=== PATIENT | male | born 1960 | race Caucasian/White ===

== ENCOUNTER 2020-01-16 13:02 | Inpatient (IN) | payer OTHER ==
[~2020-01-16] VITALS: Ht 170.2 cm; Wt 94.0 kg
--- NOTE | 2020-01-16 13:25 | NUR ---
Transfer from [place]. +occulsive thrombus left common femoral vein. C/O LLE erythema and edema. NAD. C/O mild cough x 2 weeks. Denies CP and SOB. EKG done. Placed on NIBP, pulse ox, andcardiac monitor. Will continue to monitor.
[2020-01-16] MEDS ORDERED: ATEN25TA PO (13:39)
[2020-01-16] MEDS ORDERED: ALLO100T30 PO (13:39)
[2020-01-16] MEDS ORDERED: HYDR25TA6 PO (13:39)
--- NOTE | 2020-01-16 14:06 | NUR ---
Provider at bedside. Report to Cathryn Clifford RN.
--- NOTE | 2020-01-16 14:18 | NUR ---
REPORT FROM ÁNGEL HERNADEZ. PT SITTING UPRIGHT IN [place] NOTED. REPORTS "SANDPAPER" SENSATION IN [place] YESTERDAY. SEEN IN ED IN [place] TODAY AND DX WITH LLE DVT. NO HX OF SAME. LOVENOX IN [place] PRIOR TO TRANSPORT. DENIES CP/SOB. VSS.
--- NOTE | 2020-01-16 14:50 | NUR ---
ATTEMPTED DOPPLER TO DETECT PERIPHERAL PULSES. WEAK LEFT POSTERIOR TIBIAL FOUND, NO DORSAL PEDAL DETECTED. >3S CAP REFILL OF LLE NOTED. ERP AWARE.
--- NOTE | 2020-01-16 15:57 | NUR ---
PT'S SISTER UPDATED TO POC WITH THE CONSENT OF PT. PT REPOSITIONED FOR COMFORT. VSS. CONTINUES TO DENY CP/SOB. AWAITING NERI
--- NOTE | 2020-01-16 16:15 | NUR ---
CV US CONTACTED TO REQUEST NERI. TECH STATES THAT ORDER WAS PLACED "ROUTINE" RATHER THAN STAT. TECH AWARE THAT NERI NEEDS TO BE DONE SOON POSSIBLE AND AGREES TO COMPLETE
--- NOTE | 2020-01-16 16:48 | NUR ---
NERI IN PROGRESS
[2020-01-16] MEDS ORDERED: ONDANSETRON 2MG/ML, 2ML IVPush ONE (18:00)
[2020-01-16] MEDS ORDERED: HEPARIN 25,000 UNITS/250ML PMX 250 ML IV PRN ×2 (18:00→23:00)
[2020-01-16] MEDS ORDERED: MORPHINE SULFATE 4 MG/ML, 1ML IVPush PRN (18:00)
[2020-01-16] MEDS ORDERED: HEPARIN 5,000 UNITS/ML, 1ML ONE (18:08)
[2020-01-16] MEDS ORDERED: HEPARIN 25,000 UNITS/250ML PMX 0 ML ONE (18:08)
--- NOTE | 2020-01-16 18:13 | NUR ---
DELAY IN MEDICATING WITH HEPARIN. PT MEDICATED W LOVENOX [employer] MAINTAIN[employer] TO [facility]. ERP AWARE AND TOLD RN TO HOLD UNTIL PATIENT IS SEEN BY HOSPITALIST
--- NOTE | 2020-01-16 18:17 | NUR ---
task rn: LAB BEDSIDE. PT RESTING ON GURNEY. RAMIREZ. AWAITING ROOM ASSIGNMENT. NO OTHER NEEDS REQUESTED AT THIS TIME.
[2020-01-16 18:25] LABS: BASOPHILS # (AUTO) 0.02 x10^3/uL (0-0.1); BASOPHILS % (AUTO) 0 % (0-1); EOSINOPHILS # (AUTO) 0.15 x10^3/uL (0-0.4); EOSINOPHILS % (AUTO) 2 % (1-7); LYMPHOCYTES # (AUTO) 1.35 x10^3/uL (1-3.4); LYMPHOCYTES % (AUTO) 14 % (22-44); MD NO; MEAN CORPUSCULAR HEMOGLOBIN 33.7 pg (27.5-34.5); MEAN CORPUSCULAR HGB CONC 33.3 g/dL (33.2-36.2); MEAN CORPUSCULAR VOLUME 101.2 fL (81-97); MEAN PLATELET VOLUME 7.7 fL (7.4-10.4); MONOCYTES # (AUTO) 0.92 x10^3/uL (0.2-0.8); MONOCYTES % (AUTO) 9 % (2-9); NEUTROPHILS # (AUTO) 7.41 x10^3/uL (1.8-6.8); NEUTROPHILS % (AUTO) 75 % (42-75); PLATELET COUNT 169 x10^3/uL (130-400); RED BLOOD COUNT 5.07 x10^6/uL (4.38-5.82); RED CELL DISTRIBUTION WIDTH 13.9 % (9.4-14.8)
[2020-01-16 18:36] LABS: INTERNATIONAL NORMALIZED RATIO 1.09 (0.93-1.1); PROTHROMBIN TIME 11.2 Seconds (9.6-11.5)
[2020-01-16 18:37] LABS: ALANINE AMINOTRANSFERASE 34 U/L (12-78); ALBUMIN 3.4 g/dL (3.4-5.0); ANION GAP 11 mmol/L (5-15); CALCIUM 9.7 mg/dL (8.5-10.1); CHLORIDE 102 mmol/L (98-107)
[2020-01-16 18:39] LABS: ALKALINE PHOSPHATASE 81 U/L (45-117); BILIRUBIN,TOTAL 1.6 mg/dL (0.2-1.0); CREATININE 2.45 mg/dL (0.7-1.3); TOTAL PROTEIN 8.3 g/dL (6.4-8.2)
[2020-01-16] MEDS ORDERED: HEPARIN 5,000 UNITS/ML, 1ML IV PRN (19:00)
[2020-01-16] MEDS ORDERED: HEPARIN 5,000 UNITS/ML, 1ML IV ONE (19:00)
[2020-01-16] MEDS ORDERED: SODIUM CHLORIDE FLUSH 10ML SYR IVF ONE (19:00)
--- NOTE | 2020-01-16 19:12 | NUR ---
PER PHARMACY, OKAY TO START HEPARIN APPROX 12 HOURS POST LOVENOX DOSE IN ED IN [place]. ESTIMATED LOVENOX ADMIN TIME 10AM.
--- NOTE | 2020-01-16 19:46 | NUR ---
DELAY IN CALLING REPORT. POSSIBLE ADMIT TO IR THEN CCU. AWAITING IR EVAL.
--- NOTE | 2020-01-16 20:23 | NUR ---
FAILED ATTEMPT FOR ADDITIONAL PIV ACCESS. IR RN STATES THAT ONE PIV IS OKAY. IR RN STATES THAT PT WILL GO TO CCU DIRECTLY POST TPA. TP RN AWARE. CCU ADMIT ORDER PLACED BY JACQUELINE.
[2020-01-16] MEDS ORDERED: LIDOCAINE 1%, 10ML ONE (20:26)
[2020-01-16] MEDS ORDERED: PHARMACY MAY ADJ FOR RENAL FX MC PRN (20:30)
[2020-01-16] MEDS ORDERED: hydrALAzine 20 MG/ML, 1ML IVPush PRN (20:30)
[2020-01-16] MEDS ORDERED: GABAPENTIN 300 MG CAPSULE PO PRN (20:30)
[2020-01-16] MEDS ORDERED: ONDANSETRON 2MG/ML, 2ML IVPush PRN (20:30)
[2020-01-16] MEDS ORDERED: ALBUTEROL HFA 90 MCG/SPRAY INH PRN (20:30)
[2020-01-16] MEDS ORDERED: ACETAMINOPHEN 325 MG TABLET PO PRN (20:30)
[2020-01-16] MEDS ORDERED: TRAZODONE 50MG TABLET PO PRN (20:30)
[2020-01-16] MEDS ORDERED: morphine SULFATE 10 MG/ML, 1ML IVPush PRN (20:30)
[2020-01-16 20:52] LABS: CREATINE KINASE, TOTAL 75 U/L (39-308)
[2020-01-16] MEDS ORDERED: FENTANYL PF 100 MCG/2ML ONE (21:19)
[2020-01-16] MEDS ORDERED: MIDAZOLAM 1 MG/ML, 5ML ONE ×2 (21:20)
[2020-01-16] MEDS ORDERED: NALOXONE 1 MG/ML, 2ML ONE (21:20)
[2020-01-16] MEDS ORDERED: FLUMAZENIL 0.1 MG/1 ML, 5ML ONE (21:20)
[2020-01-16] MEDS ORDERED: ALTEPLASE 10 MG in SODIUM CHLORIDE 0.9% 90 ML IV SCH (21:30)
[2020-01-16] MEDS ORDERED: HEPARIN 1,000 UNITS/ML, 10ML ONE (22:12)
[2020-01-16] MEDS ORDERED: VISIPAQUE 320MG/ML, 50ML BOTTLE ONE (22:46)
[2020-01-16] MEDS: Heparin 1000 units/500 ml 500 ML IV SCH (23:00)
[2020-01-16] MEDS ORDERED: OMNIPAQUE 350 MG/ML, 100ML BOTTLE ONE (23:06)
[2020-01-16 23:30] VITALS: BP 142/92
[2020-01-16] MEDS: ALTEPLASE 10 MG in SODIUM CHLORIDE 0.9% 90 ML IV SCH (23:39)
[2020-01-16] MEDS: LACTATED RINGERS 1,000 ML IV SCH (23:49)
[2020-01-17 04:00] VITALS: BP 107/69
[2020-01-17 06:10] LABS: ANION GAP 8 mmol/L (5-15); CHLORIDE 101 mmol/L (98-107)
[2020-01-17 06:12] LABS: CREATININE 2.02 mg/dL (0.7-1.3)
[2020-01-17 06:44] LABS: BASOPHILS # (AUTO) 0.04 x10^3/uL (0-0.1); BASOPHILS % (AUTO) 1 % (0-1); EOSINOPHILS # (AUTO) 0.21 x10^3/uL (0-0.4); EOSINOPHILS % (AUTO) 2 % (1-7); LYMPHOCYTES # (AUTO) 1.53 x10^3/uL (1-3.4); LYMPHOCYTES % (AUTO) 17 % (22-44); MD NO; MEAN CORPUSCULAR HEMOGLOBIN 33.5 pg (27.5-34.5); MEAN CORPUSCULAR VOLUME 101.5 fL (81-97); MEAN PLATELET VOLUME 8.1 fL (7.4-10.4); MONOCYTES # (AUTO) 1.09 x10^3/uL (0.2-0.8); MONOCYTES % (AUTO) 12 % (2-9); NEUTROPHILS # (AUTO) 6.32 x10^3/uL (1.8-6.8); NEUTROPHILS % (AUTO) 69 % (42-75); PLATELET COUNT 159 x10^3/uL (130-400); RED BLOOD COUNT 4.67 x10^6/uL (4.38-5.82); RED CELL DISTRIBUTION WIDTH 13.7 % (9.4-14.8)
[2020-01-17] MEDS ORDERED: ETOMIDATE 20 MG/10 ML ONE (07:48)
[2020-01-17] MEDS ORDERED: SUCCINYLCHOLINE 20 MG/ML, 10ML ONE (07:48)
[2020-01-17] MEDS ORDERED: PROPOFOL 10 MG/ML, 100ML IV ONE (07:48)
[2020-01-17] MEDS: ALTEPLASE 10 MG in SODIUM CHLORIDE 0.9% 90 ML IV SCH ×2 (07:56→13:55)
[2020-01-17] MEDS ORDERED: SENNA/DOCUSATE TABLET PO SCH (09:00)
[2020-01-17] MEDS ORDERED: POTASSIUM CHLORIDE 40 MEQ in SODIUM CHLORIDE 0.9% 500 ML IV ONE (09:00)
[2020-01-17] MEDS: LACTATED RINGERS 1,000 ML IV SCH (10:14)
[2020-01-17] MEDS: Heparin 1000 units/500 ml 500 ML IV SCH (13:53)
[2020-01-17] MEDS ORDERED: DEXAMETHASONE 4 MG/ML, 1ML ONE (22:52)
[2020-01-17] MEDS ORDERED: DEXAMETHASONE 4 MG/ML, 1ML IVPush ONE (23:00)
[2020-01-17] MEDS ORDERED: HEPARIN 25,000 UNITS/250ML PMX 250 ML IV PRN (23:00)
[2020-01-17] MEDS ORDERED: PHYTONADIONE 10 MG/ML, 1ML ONE (23:05)
[2020-01-17] MEDS ORDERED: PHYTONADIONE 10 MG/ML, 1ML IV ONE (23:30)
[2020-01-17] MEDS ORDERED: PROTAMINE SULFATE 10 MG/ML, 5ML IVPush ONE (23:30)
[2020-01-17] MEDS ORDERED: OMNIPAQUE 350 MG/ML, 100ML BOTTLE ONE (23:52)
[2020-01-17] MEDS ORDERED: FENTANYL PF 250 MCG/5ML ONE (23:55)
[2020-01-18] MEDS ORDERED: MORPHINE SULFATE 4 MG/ML, 1ML IV ONE (00:30)
[2020-01-18] MEDS ORDERED: LORazepam 2 MG/ML, 1ML IV ONE (00:30)
[2020-01-18 00:44] LABS: MICROSCOPIC INDICATED
[2020-01-18] MEDS: LORazepam 2 MG/ML, 1ML IVPush PRN ×3 (01:50→02:29)
[2020-01-18] MEDS: MORPHINE SULFATE 4 MG/ML, 1ML IVPush PRN ×2 (02:06→02:28)
== END 2020-01-18 04:44 | disposition expired | DRG 208 ==
LOC: ED 18:11 → EDIP 19:40 → CCU 22:51
PROVIDERS: ADMIT Family Medicine; ATTEND Internal Medicine
PROC: 3E03317 Introduction of Other Thrombolytic into Peripheral Vein, Percutaneous Approach (ICD-10-PCS; principal; 2020-01-16)
PROC: 0T9B70Z Drainage of Bladder with Drainage Device, Via Natural or Artificial Opening (ICD-10-PCS; 2020-01-16)
PROC: 06H033Z Insertion of Infusion Device into Inferior Vena Cava, Percutaneous Approach (ICD-10-PCS; 2020-01-16)
PROC: B549ZZA Ultrasonography of Inferior Vena Cava, Guidance (ICD-10-PCS; 2020-01-16)
PROC: B5191ZZ Fluoroscopy of Inferior Vena Cava using Low Osmolar Contrast (ICD-10-PCS; 2020-01-16)
PROC: 5A1935Z Respiratory Ventilation, Less than 24 Consecutive Hours (ICD-10-PCS; 2020-01-17)
PROC: 0BH17EZ Insertion of Endotracheal Airway into Trachea, Via Natural or Artificial Opening (ICD-10-PCS; 2020-01-17)
DX: I26.99 Other pulmonary embolism without acute cor pulmonale (principal); I61.1 Nontraumatic intracerebral hemorrhage in hemisphere, cortical; I82.220 Acute embolism and thrombosis of inferior vena cava; N17.0 Acute kidney failure with tubular necrosis; I60.9 Nontraumatic subarachnoid hemorrhage, unspecified; I82.412 Acute embolism and thrombosis of left femoral vein; I87.1 Compression of vein; D75.89 Other specified diseases of blood and blood-forming organs; E66.9 Obesity, unspecified; F10.10 Alcohol abuse, uncomplicated; G80.9 Cerebral palsy, unspecified; H57.04 Mydriasis; I10 Essential (primary) hypertension; M10.9 Gout, unspecified; Z51.5 Encounter for palliative care; Z66 Do not resuscitate; Z86.711 Personal history of pulmonary embolism; Z86.718 Personal history of other venous thrombosis and embolism; Z88.8 Allergy status to other drugs, medicaments and biological substances; Z88.1 Allergy status to other antibiotic agents; Z68.32 Body mass index [BMI] 32.0-32.9, adult
CPT/HCPCS: 36415; 37212; 75820; 75825; J3490; 70450; 70460; 71045; 74177; 80048; 80053; 81001; 82550; 83605; 83880; 85025; 85520; 85610; 85730; 87081; 93005; 93306; 93922; 94002; 94003; 99156; 99157; C1894; G0378; J1100; J1644; J2250; J2704; J2720; J2997; J3010; J3430; J3480; Q9967; C1751; C1769; J0330; J0360; J2060; J2270; J2310; J7040; J7120